=== PATIENT | male | born 1995 | race African-American/Black ===

== ENCOUNTER 2016-09-23 14:43 | Emergency (ER) | payer SELFPAY ==
[~2016-09-23] VITALS: Ht 172.7 cm; Wt 65.0 kg
[~2016-09-23 14:43] MED LIST: BACT2OIN TOP; CEPH500C3 PO; PRED50TA PO
[2016-09-23 14:45] VITALS: BP 134/81; PULSE 84; RESP 15; TEMP 97.7; O2SAT 98
[2016-09-23 14:59] VITALS: BP 143/78; PULSE 107; RESP 16; O2SAT 99
[2016-09-23] MEDS ORDERED: NAPR500T PO (15:06)
[2016-09-23] MEDS ORDERED: ZOFR4TAB3 SL ×2 (15:06→15:12)
--- NOTE | 2016-09-23 15:06 | PD ---
HPI Chief Complaint: Abdominal Pain Time Seen by Provider: 14:56 Travel History International Travel<30 days: No Contact w/Intl Traveler<30days: No Traveled to known affect area: No History of Present Illness HPI This is a 21-year-old male who presents to the emergency department with 1 week of intermittent headaches, described as mild, all over his head, associated with multiple cysts of vomiting yesterday. He is also reporting some loose stools and intermittent abdominal cramping. This felt a little under the weather throughout the week. That he's been having headaches for years and this is similar. He came in today because his job was concerned that he threw up yesterday and told him he needed to get a note to come back to work before he came back. He denies any fevers or chills. He otherwise feels fine. PFSH Past Medical History Medical History: Denies Significant Hx Influenza Vaccination: No Past Surgical History Surgical History: No Previous Surgery Social History Alcohol Use: No (BLACK & MILDS) Tobacco Use: Yes Substance Use: No Allergies-Medications (Allergen,Severity, Reaction): Coded Allergies: No Known Allergies (Verified , 03/29/16) Reported Meds & Prescriptions Reported Meds & Active Scripts Active Mupirocin 2% Oint (22 gm) (Mupirocin) 2 % Oin 1 Applic TOP BID 10 Days Deltasone (Prednisone) 50 Mg Tab 50 Mg PO DIRECTED 1 TAB PO DAILY X 4 DAYS, THEN 1/2 TAB PO DAILY X 4 DAYS. Keflex (Cephalexin Monohydrate) 500 Mg Cap 500 Mg PO BID Review of Systems Except as stated in HPI: all other systems reviewed are Neg Physical Exam Narrative GENERAL:Well appearing, no acute distress SKIN: Warm and dry. HEAD: Atraumatic. Normocephalic. EYES: Pupils equal and round. No injection or drainage. ENT: Moist mucous membranes NECK: Trachea midline. CARDIOVASCULAR: Regular rate and rhythm. No murmur appreciated. RESPIRATORY: Clear to auscultation. Breath sounds equal bilaterally. GASTROINTESTINAL: Abdomen soft, non-tender, nondistended. MUSCULOSKELETAL: No obvious deformities. NEUROLOGICAL: Awake and alert. No obvious cranial nerve deficits. No dysarthria or aphasia. No upper or lower extremity drift. No upper extremity ataxia. Visual barriga intact. PSYCHIATRIC: Appropriate mood and affect; insight and judgment normal. Data Data Last Documented VS Vital Signs Date Time Temp Pulse Resp B/P Pulse Ox O2 Delivery O2 Flow Rate FiO2 09/23/16 14:59 107 16 143/78 99 Room Air 09/23/16 14:45 97.7 [facility] Medical Decision Making Medical Screen Exam Complete: Yes Emergency Medical Condition: Yes Interpretation(s) Afebrile, no tachycardia, normotensive Differential Diagnosis Gastroenteritis, migraine headache, subarachnoid hemorrhage, brain tumor, appendicitis Narrative Course This is a very well-appearing 21-year-old male who presents to the emergency department with headache, intermittent abdominal pain and diarrhea. He's a completely normal neurologic exam. He says his headaches have been going on for years. He has a benign abdomen. I think he is really just here for a work note. I don't suspect a surgical or medical emergency at this time. Patient was discharged home. Diagnosis Primary Impression: Vomiting Qualified Code: R11.2 - Non-intractable vomiting with nausea, unspecified vomiting type Patient Instructions: General Instructions Additional Instructions: If you develop severe or worsening abdominal pain, fever>100.4, persistent vomiting or inability to eat or drink return to the emergency department immediately. Follow up with your primary care physician in 1-2 days for a check-up. Med/Other Pt SpecificInfo: Prescription(s) given Scripts Ondansetron Odt (Zofran Odt)4 Mg Tab4 Mg SL Q6HR PRN (Nausea/Vomiting) #15 TAB Prov:Myesha Hedrick MD 09/23/16 Naproxen 500 Mg Iss420 Mg PO BID PRN (PAIN SCALE 4 TO 10) #20 TAB Prov:Myesha Hedrick MD 09/23/16 Disposition: 01 DISCHARGE HOME Condition: Stable Myesha Hedrick MD Sep 23, 2016 15:06
== END 2016-09-23 15:31 | disposition home or self-care (01) ==
LOC: NEPC 14:43
DX: R11.2 Nausea with vomiting, unspecified (principal); Z72.0 Tobacco use
CPT/HCPCS: 99283

== ENCOUNTER 2016-10-14 06:43 | Emergency (ER) | payer SELFPAY ==
[~2016-10-14] VITALS: Ht 172.7 cm; Wt 62.0 kg
[~2016-10-14 06:43] MED LIST changes: -BACT2OIN TOP; -CEPH500C3 PO; +NAPR500T PO; -PRED50TA PO; +ZOFR4TAB3 SL
[2016-10-14 06:46] VITALS: BP 107/68; PULSE 77; RESP 16; TEMP 97.6; O2SAT 98
--- NOTE | 2016-10-14 07:05 | PD ---
HPI . Left knee pain since yesterday Chief Complaint: Pain: Acute or Chronic Time Seen by Provider: 07:05 Travel History International Travel<30 days: No Contact w/Intl Traveler<30days: No Traveled to known affect area: No History of Present Illness HPI 21-year-old male with no significant past medical history here with complaints of left knee pain since yesterday. Patient was outside and accidentally got struck in the left knee with a skateboard. He says at that time he did not think much of his injury and went home. Over the night his knee started to cause him increased pain that he reports 9/10 without any radiation. He is able to walk, but reports difficulty with ambulation. He also reports increased pain with movement. He is concerned because he has to go to work and tells me that he is unable to walk. He would like a note stating that he is unable to work. PFSH Past Medical History Medical History: Denies Significant Hx Diminished Hearing: No Past Surgical History Surgical History: No Previous Surgery Social History Alcohol Use: No Tobacco Use: No Substance Use: No Allergies-Medications (Allergen,Severity, Reaction): Coded Allergies: No Known Allergies (Verified , 10/14/16) Reported Meds & Prescriptions Reported Meds & Active Scripts Active Zofran Odt (Ondansetron Odt) 4 Mg Tab 4 Mg SL Q6HR PRN Naproxen 500 Mg Tab 500 Mg PO BID PRN Review of Systems General / Constitutional: No: Fever Eyes: No: Visual changes HENT: No: Headaches Cardiovascular: No: Chest Pain or Discomfort Respiratory: No: Shortness of Breath Gastrointestinal: No: Abdominal Pain Genitourinary: No: Dysuria Musculoskeletal: Positive: Pain (left knee pain) Skin: No Rash Neurologic: No: Weakness Psychiatric: No: Depression Endocrine: No: Polydipsia Hematologic/Lymphatic: No: Easy Bruising Physical Exam Narrative GENERAL: AAO x 3, no acute distress, Well-nourished, well-developed patient. SKIN: Warm and dry. No visible rashes or bruising. HEAD: Normocephalic and atraumatic. EYES: No scleral icterus. No injection or drainage. ENT: No nasal drainage noted. Airway patent. NECK: Supple, trachea midline. No JVD. CARDIOVASCULAR: Regular rate and rhythm without murmurs, gallops, or rubs. RESPIRATORY: Breath sounds equal bilaterally. No accessory muscle use. No rhonchi or rales. GASTROINTESTINAL: Abdomen soft, non-tender, nondistended. EXTREMITIES: No cyanosis or edema. Left knee without any edema, ecchymosis or gross abnormality. Active range of motion is diminished secondary pain. Passive range of motion is within normal limits. Valgus and varus stress test is normal. There is no visible effusion. BACK: Nontender without obvious deformity. No CVA tenderness. PSYCH: AAO x 3, normal affect. Data Data Last Documented VS Vital Signs Date Time Temp Pulse Resp B/P Pulse Ox O2 Delivery O2 Flow Rate FiO2 10/14/16 06:46 97.6 77 16 107/68 98 Room Air Orders ^ Salvador Bandage (10/14/16 07:08) Crutches (10/14/16 07:09) MDM Medical Decision Making Medical Screen Exam Complete: Yes Emergency Medical Condition: Yes Medical Record Reviewed: Yes Differential Diagnosis knee sprain, internal derangement of the knee, less likely knee fracture Narrative Course 21-year-old male with no significant past medical history here with complaints of left knee pain since yesterday. Patient was outside and accidentally got struck in the left knee with a skateboard. He says at that time he did not think much of his injury and went home. Over the night his knee started to cause him increased pain that he reports 9/10 without any radiation. He is able to walk, but reports difficulty with ambulation. He also reports increased pain with movement. He is concerned because he has to go to work and tells me that he is unable to walk. He would like a note stating that he is unable to work. Patient seen and examined. His knee examination is fairly unremarkable except for pain with passive movement and difficulty standing. He is ambulatory. My index of suspicion for a fracture is very low. I recommend Salvador wrap and crutches for brief immobilization. He more than likely has a knee sprain. I'll provide him with a note for work today. He's been advised to use ibuprofen for pain and inflammation. He can ice the area. He will need follow-up with primary care provider. If he continues to experience pain in this extremity he may need further imaging with an MRI to look at ligaments and the meniscus. Patient verbalized understanding of instructions, questions were answered, and thanked me for their care. I advised them if their condition worsens, please return to the nearest emergency room for further care. Diagnosis Primary Impression: Left knee sprain Qualified Code: S83.92XA - Sprain of left knee, unspecified ligament, initial encounter Patient Instructions: General Instructions Departure Forms: Tests/Procedures, Work Release Enter return to work date: Oct 15, 2016 Additional Instructions: Rest the affected area as much as possible. Ice this area for 15-20 minutes at a time. You can do this every hour or as much as tolerated. Keep this area compressed (salvador bandage) as tolerated. Elevate this area. Use ibuprofen as needed for pain and inflammation. Use crutches for the next 3-5 days. Please return to emergency department if your symptoms return or worsen. Follow up with your primary care provider. Take medications as prescribed. If pain persists past 7-10 days, please follow-up to primary care provider for further workup and treatment. Disposition: 01 DISCHARGE HOME Condition: Stable Anuradha Hsu Oct 14, 2016 07:05
== END 2016-10-14 07:43 | disposition home or self-care (01) ==
LOC: NEPK 06:43
DX: S83.92XA Sprain of unspecified site of left knee, initial encounter (principal); W20.8XXA Other cause of strike by thrown, projected or falling object, initial encounter; Y93.51 Activity, roller skating (inline) and skateboarding; Y92.39 Other specified sports and athletic area as the place of occurrence of the external cause
CPT/HCPCS: 99283; E0113

== ENCOUNTER 2016-11-06 04:38 | Emergency (ER) | payer SELFPAY ==
[~2016-11-06] VITALS: Ht 172.7 cm; Wt 65.0 kg
[2016-11-06 04:42] VITALS: BP 124/69; PULSE 70; RESP 18; TEMP 98.6; O2SAT 99
[2016-11-06] MEDS ORDERED: KETOROLAC TROMETHAMINE 30 MG/ML (IVP) VIAL IV PUSH ONE (05:45)
[2016-11-06] MEDS ORDERED: SODIUM CHLOR 0.9% 1000 ML INJ 1,000 ML IV ONE (05:45)
--- NOTE | 2016-11-06 06:08 | PD ---
HPI Chief Complaint: Headache Time Seen by Provider: 05:34 Travel History International Travel<30 days: No Contact w/Intl Traveler<30days: No Traveled to known affect area: No History of Present Illness HPI 21yo M with PMH of migraine presents to the ED with c/o right sided headache. Feels like his migraine with positive photophobia. States he gets these headaches 2 times a week. Denies any fever, visual changes, chest pain, sob, n/ v, abdominal pain, focal weakness or numbness or trauma. PFSH Past Medical History Medical History: Denies Significant Hx Diminished Hearing: No Past Surgical History Surgical History: No Previous Surgery Social History Alcohol Use: No Tobacco Use: No Substance Use: No Allergies-Medications (Allergen,Severity, Reaction): Coded Allergies: No Known Allergies (Verified , 11/06/16) Reported Meds & Prescriptions Reported Meds & Active Scripts Active No Active Prescriptions or Reported Medications Review of Systems Except as stated in HPI: all other systems reviewed are Neg Physical Exam Narrative GENERAL: 21yo M in mild distress. SKIN: Focused skin assessment warm/dry. HEAD: Atraumatic. Normocephalic. EYES: Pupils equal and round at 4mm bilaterally. EOMI. No scleral icterus. No injection or drainage. ENT: No nasal bleeding or discharge. Mucous membranes pink and moist. NECK: Trachea midline. No JVD. CARDIOVASCULAR: Regular rate and rhythm. No murmur appreciated. RESPIRATORY: No accessory muscle use. Clear to auscultation. Breath sounds equal bilaterally. GASTROINTESTINAL: Abdomen soft, non-tender, nondistended. MUSCULOSKELETAL: No obvious deformities. No clubbing. No cyanosis. No edema. NEUROLOGICAL: Awake and alert. No obvious cranial nerve deficits. Motor grossly within normal limits. Normal speech. PSYCHIATRIC: Appropriate mood and affect; insight and judgment normal. Data Data Last Documented VS Vital Signs Date Time Temp Pulse Resp B/P Pulse Ox O2 Delivery O2 Flow Rate FiO2 11/06/16 06:55 18 11/06/16 04:42 98.6 70 124/69 99 Orders Ketorolac Inj (Toradol Inj) (11/06/16 05:45) Sodium Chlor 0.9% 1000 Ml Inj (Ns 1000 M (11/06/16 05:45) MDM Medical Decision Making Medical Screen Exam Complete: Yes Emergency Medical Condition: Yes Differential Diagnosis Migraine headache vs. tension headache Narrative Course 21yo M with right sided headache, feels like his usual headache. Pt given NS IVF and toradol 30mg IV. Pt reevaluated at bedside and headache has resolved. Pt feels better and wants to go home. Return precautions given. Diagnosis Primary Impression: Headache Qualified Code: R51 - Nonintractable episodic headache, unspecified headache type Patient Instructions: General Instructions Departure Forms: Tests/Procedures Additional Instructions: Please follow up with your PMD for possible neurology referral or our neurologist for work up of your chronic headaches. Return to the ED if symptoms worsen. Med/Other Pt SpecificInfo: Prescription(s) given Scripts Acetaminophen 500 Mg [id number] Mg PO Q6H PRN (PAIN SCALE 1 TO 4) #20 TAB Ref 0 Prov:Shana Navas DO 11/06/16 Disposition: 01 DISCHARGE HOME Condition: Stable Shana Navas DO Nov 06, 2016 06:08
[2016-11-06 06:55] VITALS: RESP 18
[2016-11-06] MEDS ORDERED: ACET500T3 PO (07:22)
== END 2016-11-06 08:17 | disposition home or self-care (01) ==
LOC: NEPE 04:38
DX: R51 Headache (principal)
CPT/HCPCS: 96361; 96374; 99283; J1885; J7030

== ENCOUNTER 2017-01-09 07:22 | Emergency (ER) | payer SELFPAY ==
[~2017-01-09] VITALS: Ht 172.7 cm; Wt 65.0 kg
[~2017-01-09 07:22] MED LIST changes: +ACET500T3 PO; -NAPR500T PO; -ZOFR4TAB3 SL
[2017-01-09 07:23] VITALS: BP 153/69; PULSE 77; RESP 16; TEMP 98.2; O2SAT 98
[2017-01-09 07:42] VITALS: BP 131/66; PULSE 77; RESP 16; O2SAT 99
[2017-01-09] MEDS ORDERED: cefTRIAXone 250 MG VIAL IM ONE (08:15)
[2017-01-09] MEDS ORDERED: SODIUM CHLORIDE 0.9% FLUSH 10 ML FLUSH IVF PRN (08:15)
[2017-01-09] MEDS ORDERED: AZITHROMYCIN PWD FOR SUSP 1 GM PACKET PO ONE (08:15)
[2017-01-09] MEDS ORDERED: IBUPROFEN 600 MG TAB PO ONE (08:15)
--- NOTE | 2017-01-09 09:29 | PD ---
HPI Chief Complaint: Complaint Time Seen by Provider: 08:11 Travel History International Travel<30 days: No Contact w/Intl Traveler<30days: No Traveled to known affect area: No History of Present Illness HPI 21-year-old male came to the emergency room with history of dysuria, suprapubic discomfort and yellowish-colored penile discharge. Patient says this has been going on for past 4 days. He is sexually active and has had unprotected sex with his "baby mama"about one month ago. He is otherwise a healthy person. He looked a little anxious but vital signs stable. No blood in his urine. [facility] Past Medical History Narrative Medical List of his past medical, surgical, social and family history was reviewed from the nursing note. Medical History: Denies Significant Hx Diminished Hearing: No Influenza Vaccination: No Past Surgical History Surgical History: No Previous Surgery Social History Alcohol Use: Yes (OCCASIONALLY) Tobacco Use: Yes Substance Use: Yes (MARIJUANA) Allergies-Medications (Allergen,Severity, Reaction): Coded Allergies: No Known Allergies (Verified , 01/09/17) Comments No known drug allergies. Reported Meds & Prescriptions Reported Meds & Active Scripts Active Macrobid (Nitrofurantoin Monoh/Nitrofur Macro) 100 Mg Cap 100 Mg PO BID 10 Days Narrative Medication List of his home medications reviewed from the nursing note. Review of Systems Except as stated in HPI: all other systems reviewed are Neg Physical Exam Narrative GENERAL: Awake, alert, anxious, mild distress SKIN: Focused skin assessment warm/dry. HEAD: Atraumatic. Normocephalic. EYES: Pupils equal and round. No scleral icterus. No injection or drainage. ENT: No nasal bleeding or discharge. Mucous membranes pink and moist. NECK: Trachea midline. No JVD. CARDIOVASCULAR: Regular rate and rhythm. No murmur appreciated. RESPIRATORY: No accessory muscle use. Clear to auscultation. Breath sounds equal bilaterally. GASTROINTESTINAL: Abdomen soft, non-tender, nondistended. Hepatic and splenic margins not palpable. MUSCULOSKELETAL: No obvious deformities. No clubbing. No cyanosis. No edema. NEUROLOGICAL: Awake and alert. No obvious cranial nerve deficits. Motor grossly within normal limits. Normal speech. PSYCHIATRIC: Appropriate mood and affect; insight and judgment normal. Data Data Last Documented VS Orders Ua Includes Microscopic (01/09/17 08:13) Gc And Chlamydia Pcr (01/09/17 08:13) Azithromycin Powd Pack (Zithromax Powd P (01/09/17 08:15) Ceftriaxone Inj (Rocephin Inj) (01/09/17 08:15) Sodium Chloride 0.9% Flush (Ns Flush) (01/09/17 08:15) Ibuprofen (Motrin) (01/09/17 08:15) Nitrofurantoin Monohyd Macrocr (Macrobid (01/09/17 09:45) Labs [facility] Medical Decision Making Medical Screen Exam Complete: Yes Emergency Medical Condition: Yes Medical Record Reviewed: Yes Differential Diagnosis STD, urethritis, UTI, cystitis Narrative Course 9:28 AM given the symptoms are highly suspicious for STD. UA and urine for GC and chlamydia has been sent. Awaiting for the test result. Patient was given by mouth Motrin for his discomfort. I had ordered IM Rocephin and Zithromax but patient refused to take the IM shot. 9:39 AM UA strongly suggestive of UTI. I've given him a dose of Macrobid. GC and chlamydia still pending. Patient will be discharged home on Macrobid prescription. Once again he has refused IM ceftriaxone. Procedures EKG Prior to Arrival: No Diagnosis Primary Impression: Cystitis Additional Impression: UTI (urinary tract infection) Qualified Code: N30.00 - Acute cystitis without hematuria Referrals: Primary Care Physician Additional Instructions: He will be called back if you her GC and/or chlamydia is positive for further treatment. He had refused to get the antibiotic shot in the emergency room. Please take the medication prescription as per the direction. Drink lots of fluid and cranberry juice. Follow up with a primary care. Use condoms for sex for next 21 days. If the test comes back positive your partners will need to be treated as well. Med/Other Pt SpecificInfo: Prescription(s) given Scripts Nitrofurantoin Monohydrate Macrocrystals (Macrobid)100 Mg [id number] Mg PO BID 10 Days Ref 0 Prov:Leticia Sanders MD 01/09/17 Disposition: 01 DISCHARGE HOME Condition: Stable Leticia Sanders MD Jan 09, 2017 09:29 [facility] Medical Decision Making Medical Screen Exam Complete: Yes Emergency Medical Condition: Yes Medical Record Reviewed: Yes Differential Diagnosis STD, urethritis, UTI, cystitis Narrative Course 9:28 AM given the symptoms are highly suspicious for STD. UA and urine for GC and chlamydia has been sent. Awaiting for the test result. Patient was given by mouth Motrin for his discomfort. I had ordered IM Rocephin and Zithromax but patient refused to take the IM shot. 9:39 AM UA strongly suggestive of UTI. I've given him a dose of Macrobid. GC and chlamydia still pending. Patient will be discharged home on Macrobid prescription. Once again he has refused IM ceftriaxone. Procedures EKG Prior to Arrival: No Diagnosis Primary Impression: Cystitis Additional Impression: UTI (urinary tract infection) Qualified Code: N30.00 - Acute cystitis without hematuria Referrals: Primary Care Physician Additional Instructions: He will be called back if you her GC and/or chlamydia is positive for further treatment. He had refused to get the antibiotic shot in the emergency room. Please take the medication prescription as per the direction. Drink lots of fluid and cranberry juice. Follow up with a primary care. Use condoms for sex for next 21 days. If the test comes back positive your partners will need to be treated as well. Med/Other Pt SpecificInfo: Prescription(s) given Scripts Nitrofurantoin Monohydrate Macrocrystals (Macrobid)100 Mg [id number] Mg PO BID 10 Days Ref 0 Prov:Leticia Sanders MD 01/09/17 Disposition: 01 DISCHARGE HOME Condition: Stable Leticia Sanders MD Jan 09, 2017 09:29
[2017-01-09 09:33] LABS: BLOOD, URINE SMALL (NEG); GLUCOSE,URINE NEG (NEG); KETONE, URINE NEG (NEG); NITRITE,URINE NEG (NEG); PH, URINE 6.5 (5.0-8.5); URINE COLOR YELLOW (YELLW/STRAW)
[2017-01-09] MEDS ORDERED: MACR100C2 PO (09:42)
[2017-01-09] MEDS ORDERED: NITROFURANTOIN MONOHYD MACROCR 100 MG CAP PO ONE (09:45)
[2017-01-09 12:46] LABS: CHLAMYDIA PCR DETECTED (NOT DETECT); NEISSERIA PCR DETECTED (NOT DETECT)
== END 2017-01-09 09:54 | disposition home or self-care (01) ==
LOC: NEPC 07:22
DX: N30.00 Acute cystitis without hematuria (principal); R36.9 Urethral discharge, unspecified; Z72.0 Tobacco use
CPT/HCPCS: 81001; 87491; 87591; 99283

== ENCOUNTER 2017-01-24 13:17 | Emergency (ER) | payer SELFPAY ==
[~2017-01-24] VITALS: Ht 172.7 cm; Wt 62.0 kg
[~2017-01-24 13:17] MED LIST changes: -ACET500T3 PO; +MACR100C2 PO
[2017-01-24 13:19] VITALS: BP 110/62; PULSE 76; RESP 16; TEMP 97.9; O2SAT 98
--- NOTE | 2017-01-24 14:39 | PD ---
HPI . dysuria Chief Complaint: Complaint Time Seen by Provider: 14:45 Travel History International Travel<30 days: No Contact w/Intl Traveler<30days: No Traveled to known affect area: No History of Present Illness HPI 21-year-old male here with complaints of dysuria. Patient says he was seen 2 weeks ago and treated with medications. He says that his symptoms went away and now they are back. He admits to penile discharge, but does not want me to look at his penis. He denies any sexual activity since. He actually wanted to wait for the results of the STD testing, however when we discussed the length of those he decided that he wants to leave. Patient says that he is okay going home as he doesn't want more meds if he isn't infected and I advised him if there is any abnormality somebody will notify him tomorrow. PFSH Past Medical History Diminished Hearing: No Social History Alcohol Use: Yes (OCCASIONALLY) Tobacco Use: Yes Substance Use: Yes (MARIJUANA) Allergies-Medications (Allergen,Severity, Reaction): Coded Allergies: No Known Allergies (Verified , 01/24/17) Reported Meds & Prescriptions Reported Meds & Active Scripts Active Macrobid (Nitrofurantoin Monoh/Nitrofur Macro) 100 Mg Cap 100 Mg PO BID 10 Days Review of Systems General / Constitutional: No: Fever Eyes: No: Visual changes HENT: No: Headaches Cardiovascular: No: Chest Pain or Discomfort Respiratory: No: Shortness of Breath Gastrointestinal: No: Abdominal Pain Genitourinary: Positive: Dysuria, Other (penile discharge) Musculoskeletal: No: Pain Skin: No Rash Neurologic: No: Weakness Psychiatric: No: Depression Endocrine: No: Polydipsia Hematologic/Lymphatic: No: Easy Bruising Physical Exam Narrative GENERAL: AAO x 3, no acute distress, Well-nourished, well-developed patient. SKIN: Warm and dry. No visible rashes or bruising. HEAD: Normocephalic and atraumatic. EYES: No scleral icterus. No injection or drainage. ENT: No nasal drainage noted. Mucous membranes pink. Airway patent. NECK: Supple, trachea midline. No JVD. CARDIOVASCULAR: Regular rate and rhythm without murmurs, gallops, or rubs. RESPIRATORY: Breath sounds equal bilaterally. No accessory muscle use. No rhonchi or rales. GASTROINTESTINAL: Abdomen soft, non-tender, nondistended. 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 No discharge on paper. EXTREMITIES: No cyanosis or edema. BACK: No obvious deformity. NO CVA tenderness. 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 Data Data Last Documented VS Vital Signs Date Time Temp Pulse Resp B/P Pulse Ox O2 Delivery O2 Flow Rate FiO2 01/24/17 14:57 98.0 72 16 118/71 99 01/24/17 13:19 Room Air Orders Urinalysis - C+S If Indicated (01/24/17 14:53) Gc And Chlamydia Pcr (01/24/17 14:53) Sodium Chloride 0.9% Flush (Ns Flush) (01/24/17 15:00) MDM Medical Decision Making Medical Screen Exam Complete: Yes Emergency Medical Condition: Yes Medical Record Reviewed: Yes Differential Diagnosis gonorrhea, chlamydia, UTI Narrative Course 21-year-old male here with complaints of dysuria penile discharge. Patient will not allow examination. Records reveal that he was positive for both chlamydia and gonorrhea on January 09. I discussed these results with patient and he wants to wait until testing is back. He actually did not want to wait for several hours in the ED and has opted to have someone call him tomorrow if in fact he is infected. I recommend testing at [facility] for all STDs. Diagnosis Primary Impression: Dysuria Patient Instructions: General Instructions Additional Instructions: Someone will notify you of your results once they become available. You should go to the health department for further STD screening and testing. Med/Other Pt SpecificInfo: No Change to Meds Disposition: 01 DISCHARGE HOME Condition: Stable Anuradha Hsu Jan 24, 2017 14:39
[2017-01-24 14:57] VITALS: BP 118/71; TEMP 98
[2017-01-24] MEDS ORDERED: SODIUM CHLORIDE 0.9% FLUSH 10 ML FLUSH IVF PRN (15:00)
[2017-01-24 15:45] LABS: BACTERIA, URINE RARE /hpf; BLOOD, URINE TRACE (NEG); COMMENT (UR) CULTURE INDICATED; CULTURE IF INDICATED CULTURE INDICATED; GLUCOSE,URINE NEG (NEG); KETONE, URINE NEG (NEG); NITRITE,URINE NEG (NEG); URINE COLOR YELLOW (YELLW/STRAW)
[2017-01-24 17:41] LABS: CHLAMYDIA PCR NOT DETECTED (NOT DETECT); NEISSERIA PCR DETECTED (NOT DETECT)
== END 2017-01-24 14:57 | disposition home or self-care (01) ==
LOC: NEPK 13:17
DX: R30.0 Dysuria (principal); R36.9 Urethral discharge, unspecified; Z72.0 Tobacco use
CPT/HCPCS: 81001; 87086; 87185; 87491; 87591; 99283

== ENCOUNTER 2017-01-25 16:44 | Emergency (ER) | payer BC ==
[~2017-01-25] VITALS: Ht 172.7 cm; Wt 65.0 kg
[2017-01-25 16:45] VITALS: BP 117/56; PULSE 115; RESP 20; TEMP 98.7; O2SAT 97
[2017-01-25] MEDS ORDERED: cefTRIAXone 250 MG VIAL IM ONE (17:15)
[2017-01-25] MEDS ORDERED: AZITHROMYCIN 250 MG TAB PO ONE (17:15)
[2017-01-25] MEDS ORDERED: LIDOCAINE HCL 1% 50 ML VIAL XX ONE (17:15)
--- NOTE | 2017-01-25 17:16 | PD ---
HPI Chief Complaint: Complaint Time Seen by Provider: 17:15 Travel History International Travel<30 days: No Contact w/Intl Traveler<30days: No Traveled to known affect area: No History of Present Illness HPI 21-year-old male presents to the emergency department for treatment of chlamydia. Patient was seen and evaluated yesterday and diagnosed with dysuria. His GC PCR came back positive. He is contacted today and instructed to return to emergency department. Patient has no new symptoms to report. [facility] Past Medical History Medical History: Denies Significant Hx Diminished Hearing: No Genitourinary: Yes (STD) Social History Alcohol Use: Yes (OCCASIONALLY) Tobacco Use: Yes Substance Use: Yes (MARIJUANA) Allergies-Medications (Allergen,Severity, Reaction): Coded Allergies: No Known Allergies (Verified , 01/24/17) Reported Meds & Prescriptions Reported Meds & Active Scripts Active Macrobid (Nitrofurantoin Monoh/Nitrofur Macro) 100 Mg Cap 100 Mg PO BID 10 Days Review of Systems Except as stated in HPI: all other systems reviewed are Neg Physical Exam Narrative GENERAL: Well-nourished, well-developed male patient in no acute distress SKIN: Focused skin assessment warm/dry. HEAD: Normocephalic. EYES: No scleral icterus. No injection or drainage. NECK: Supple, trachea midline. No JVD or lymphadenopathy. CARDIOVASCULAR: Regular rate and rhythm without murmurs, gallops, or rubs. RESPIRATORY: Breath sounds equal bilaterally. No accessory muscle use. GASTROINTESTINAL: Abdomen soft, non-tender, nondistended. MUSCULOSKELETAL: No cyanosis, or edema. BACK: Nontender without obvious deformity. No CVA tenderness. Data Data Last Documented VS Vital Signs Date Time Temp Pulse Resp B/P Pulse Ox O2 Delivery O2 Flow Rate FiO2 01/25/17 16:45 98.7 115 20 117/56 97 Room Air Orders Ceftriaxone Inj (Rocephin Inj) (01/25/17 17:15) Lidocaine 1% Inj (50 Ml) (Xylocaine 1% I (01/25/17 17:15) Azithromycin (Zithromax) (01/25/17 17:15) Lidocaine Pf 1% Inj (Xylocaine-Mpf 1% In (01/25/17 17:31) Lidocaine Pf 1% Inj (Xylocaine-Mpf 1% In (01/25/17 17:34) MDM Medical Decision Making Medical Screen Exam Complete: Yes Emergency Medical Condition: Yes Medical Record Reviewed: Yes Differential Diagnosis Chlamydia versus urethritis versus UTI versus other STD Narrative Course 21-year-old male presents to the emergency department for treatment of chlamydia. Patient appears without distress. He has no acute changes. He is treated with both Rocephin and azithromycin here in the emergency department. He is counseled on safe sex practices. Instructed to tell his partners about his diagnosis and the need for treatment. He agrees to return immediately with any acute worsening symptoms. Diagnosis Primary Impression: Chlamydia Referrals: Primary Care Physician Patient Instructions: Chlamydia (ED), General Instructions Additional Instructions: Your partners should be tested and treated Utilize condom prophylaxis Follow-up with the [facility] department Return immediately with any acute worsening of symptoms Med/Other Pt SpecificInfo: No Change to Meds Disposition: 01 DISCHARGE HOME Condition: Stable Ida Luciano Jan 25, 2017 17:16
[2017-01-25] MEDS ORDERED: LIDOCAINE HCL 1% PF 2 ML VIAL ONE ×2 (17:31→17:34)
== END 2017-01-25 18:28 | disposition home or self-care (01) ==
LOC: NEPK 16:44
DX: A74.9 Chlamydial infection, unspecified (principal); Z79.899 Other long term (current) drug therapy; Z72.0 Tobacco use
CPT/HCPCS: 96372; 99281; J0696

== ENCOUNTER 2017-01-27 12:37 | Emergency (ER) | payer BC ==
[~2017-01-27] VITALS: Ht 172.7 cm; Wt 60.0 kg
[2017-01-27 12:38] VITALS: BP 118/66; PULSE 73; RESP 16; TEMP 98.2; O2SAT 98
--- NOTE | 2017-01-27 12:46 | PD ---
HPI . called to come in Chief Complaint: Complaint Time Seen by Provider: 12:44 Travel History International Travel<30 days: No Contact w/Intl Traveler<30days: No Traveled to known affect area: No History of Present Illness HPI 21-year-old male received a phone call to come back to the emergency department. I actually saw this patient a few days ago and he did not want prophylactic treatment for chlamydia and gonorrhea. Lab tests are back and he is positive for gonorrhea. I have reviewed the records and he actually already received azithromycin and rocephin. PFSH Past Medical History Diminished Hearing: No Genitourinary: Yes (STD) Social History Alcohol Use: Yes (OCCASIONALLY) Tobacco Use: Yes Substance Use: Yes (MARIJUANA) Allergies-Medications (Allergen,Severity, Reaction): Coded Allergies: No Known Allergies (Verified , 01/24/17) Reported Meds & Prescriptions Reported Meds & Active Scripts Active Macrobid (Nitrofurantoin Monoh/Nitrofur Macro) 100 Mg Cap 100 Mg PO BID 10 Days Review of Systems General / Constitutional: No: Fever Eyes: No: Visual changes HENT: No: Headaches Cardiovascular: No: Chest Pain or Discomfort Respiratory: No: Shortness of Breath Gastrointestinal: No: Abdominal Pain Genitourinary: No: Dysuria Musculoskeletal: No: Pain Skin: No Rash Neurologic: No: Weakness Psychiatric: No: Depression Endocrine: No: Polydipsia Hematologic/Lymphatic: No: Easy Bruising Physical Exam Narrative GENERAL: AAO x 3, no acute distress, Well-nourished, well-developed patient. SKIN: Warm and dry. No visible rashes or bruising. HEAD: Normocephalic and atraumatic. EYES: No scleral icterus. No injection or drainage. ENT: No nasal drainage noted.Airway patent. NECK: Supple, trachea midline. No JVD. CARDIOVASCULAR: Regular rate and rhythm without murmurs, gallops, or rubs. RESPIRATORY: Breath sounds equal bilaterally. No accessory muscle use. No rhonchi or rales. GASTROINTESTINAL: Abdomen soft, non-tender, nondistended. EXTREMITIES: No cyanosis or edema. BACK: Nontender without obvious deformity. No CVA tenderness. NEURO: CN II-12 intact, PSYCH: AAO x 3, normal affect. Data Data Last Documented VS Vital Signs Date Time Temp Pulse Resp B/P Pulse Ox O2 Delivery O2 Flow Rate FiO2 01/27/17 12:38 98.2 73 16 118/66 98 [facility] Medical Decision Making Medical Screen Exam Complete: Yes Emergency Medical Condition: Yes Medical Record Reviewed: Yes Differential Diagnosis gonorrhea, chlamydia, Narrative Course A medical screening exam was performed: At the time of evaluation the presenting medical condition was determined not to be of an emergent nature. The patient was given the option of receiving additional care, but declined. Patient was given options for additional community resources from which to obtain care. The Patient Has Been advised to seek medical attention for their presenting complaint. The patient has been advised to return to the ER at any time if an emergent condition develops. Diagnosis Primary Impression: Encounter for medical screening examination Condition: Stable Anuradha Hsu Jan 27, 2017 12:46
== END 2017-01-27 12:54 | disposition left against medical advice (07) ==
LOC: NEPD 12:37
DX: A54.9 Gonococcal infection, unspecified (principal)
CPT/HCPCS: 99281

== ENCOUNTER 2017-04-09 00:03 | Emergency (ER) | payer BC ==
[~2017-04-09] VITALS: Ht 172.7 cm; Wt 60.0 kg
[2017-04-09 00:05] VITALS: BP 109/69; PULSE 69; RESP 16; TEMP 97.9; O2SAT 99
--- NOTE | 2017-04-09 02:08 | PD ---
HPI Chief Complaint: Injury Time Seen by Provider: 01:57 Travel History International Travel<30 days: No Contact w/Intl Traveler<30days: No Traveled to known affect area: No History of Present Illness HPI 22-year-old [id number]-jpmrowan black male presents to emergency department with complains of right hand pain after striking a wall. The patient states that he has pain in his thumb and first metacarpal. He denies any numbness or tingling. No other injury. This happened prior to arrival. Pain is mild to moderate PFSH Past Medical History Medical History: Denies Significant Hx Diminished Hearing: No Genitourinary: Yes (STD) Tetanus Vaccination: Unknown Past Surgical History Surgical History: No Previous Surgery Social History Alcohol Use: Yes (OCCASIONALLY) Tobacco Use: No Substance Use: Yes (MARIJUANA) Allergies-Medications (Allergen,Severity, Reaction): Coded Allergies: No Known Allergies (Verified , 01/24/17) Reported Meds & Prescriptions Reported Meds & Active Scripts Active Diclofenac Sodium DR (Diclofenac Sodium) 75 Mg Tabdr 75 Mg PO BID Review of Systems Except as stated in HPI: all other systems reviewed are Neg Physical Exam Narrative GENERAL: This is a well-nourished, well-developed patient, in no apparent distress. SKIN: No rashes, ecchymoses or lesions. Warm and dry. HEAD: Atraumatic. Normocephalic. EYES: PERRL, EOMI, no discharge or injection. No scleral icterus. EARS: Clear NOSE: Nasal turbinates appear normal. THROAT: Mucosa pink and moist. Airway patent. NECK: Trachea midline. supple, moves head freely. LUNGS: Clear to auscultation. CV: Regular in rhythm. ABDOMEN: Soft nontender. EXT: No clubbing cyanosis or edema. Examination the right hand reveals pain in the proximal phalanx of the right thumb into the first MCP and first metacarpal. Remainder hand is unremarkable. No pain in the wrist or anatomical snuffbox. No gamekeeper's thumb. Data Data Last Documented VS Vital Signs Date Time Temp Pulse Resp B/P (MAP) Pulse Ox O2 Delivery O2 Flow Rate FiO2 04/09/17 00:05 97.9 69 16 109/69 (82) 99 Room Air Orders Orders Hand, Complete ([id number]) (04/09/17 01:59) Ice/Cold Pack (04/09/17 01:59) Ibuprofen (Motrin) (04/09/17 02:45) MDM Medical Decision Making Medical Screen Exam Complete: Yes Emergency Medical Condition: Yes Medical Record Reviewed: Yes Interpretation(s) Right hand: Negative for acute fracture. No subluxation. Differential Diagnosis MDM: High Differential diagnoses: Fracture, sprain, strain, dislocation, contusion, neurovascular injury Narrative Course Patient's given Motrin 800 mg by mouth. X-rays negative. This is right hand sprain Diagnosis Primary Impression: Sprain of right hand Qualified Codes: S63.91XA - Sprain of unspecified part of right wrist and hand , initial encounter Additional Impression: Sprained finger and thumb of right hand Qualified Codes: S63.619A - Unspecified sprain of unspecified finger, initial encounter; S63.601A - Unspecified sprain of right thumb, initial encounter Patient Instructions: General Instructions Departure Forms: Tests/Procedures, Work Release Special Instructions: No work 2 days. Additional Instructions: Rest. Elevation. Ice. Diclofenac. Follow-up with medical doctor in one week. Med/Other Pt SpecificInfo: Prescription(s) given Scripts Diclofenac Sodium DR (Diclofenac Sodium DR) 75 Mg Tabdr 75 MG PO BID, #14 TAB 0 Refills Prov: Juan Martin MD 04/09/17 Disposition: 01 DISCHARGE HOME Condition: Stable Solis De Anda Apr 09, 2017 02:08
--- NOTE | 2017-04-09 02:29 | RADRPT ---
EXAM DATE/TIME: 04/09/2017 01:58 [facility] COMPARISON: No previous studies available for comparison. INDICATIONS : Pt punched wall MEDICAL HISTORY : None. SURGICAL HISTORY : None. ENCOUNTER: Initial ACUITY: 1 day PAIN SCORE: 7/10 LOCATION: Right Hand FINDINGS: Three view examination of the right hand demonstrates no soft tissue swelling, dislocation, or fractu re. The carpal bones appear intact. The interphalangeal and metacarpophalangeal joints are intact. Bony mineralization is normal. CONCLUSION: Normal examination for a patient of this age. Solis Tsai MD on April 09, 2017 at 2:26 Board Certified Radiologist. This report was verified electronically.
[2017-04-09] MEDS ORDERED: DICL75TA PO (02:30)
[2017-04-09] MEDS ORDERED: IBUPROFEN 800 MG TAB PO ONE (02:45)
== END 2017-04-09 02:42 | disposition home or self-care (01) ==
LOC: NEPD 00:03
DX: S63.91XA Sprain of unspecified part of right wrist and hand, initial encounter (principal); S63.619A Unspecified sprain of unspecified finger, initial encounter; S63.601A Unspecified sprain of right thumb, initial encounter; X50.0XXA Overexertion from strenuous movement or load, initial encounter
CPT/HCPCS: 73130; 99283

== ENCOUNTER 2017-06-24 12:32 | Emergency (ER) | payer BC ==
[~2017-06-24] VITALS: Ht 175.3 cm; Wt 62.0 kg
[~2017-06-24 12:32] MED LIST changes: +DICL75TA PO; -MACR100C2 PO
[2017-06-24 12:33] VITALS: BP 120/62; PULSE 81; RESP 12; TEMP 98.5; O2SAT 99
[2017-06-24] MEDS ORDERED: SODIUM CHLOR 0.9% 1000 ML INJ 1,000 ML IV ONE ×2 (13:39→15:45)
[2017-06-24] MEDS ORDERED: MORPHINE SULFATE 4 MG/ML INJ IV PUSH ONE ×2 (13:45→15:45)
[2017-06-24] MEDS ORDERED: PROCHLORPERAZINE INJ 10 MG/2 ML VIAL IVP ONE (13:45)
[2017-06-24] MEDS ORDERED: KETOROLAC TROMETHAMINE 30 MG/ML (IVP) VIAL IVP ONE (13:45)
[2017-06-24] MEDS ORDERED: SODIUM CHLORIDE 0.9% FLUSH 10 ML FLUSH IVF PRN (13:45)
[2017-06-24] MEDS ORDERED: diphenhydrAMINE HCL 50 MG/ML VIAL IVP ONE (13:45)
--- NOTE | 2017-06-24 14:18 | PD ---
HPI Chief Complaint: Headache Time Seen by Provider: 13:28 Travel History International Travel<30 days: No Contact w/Intl Traveler<30days: No Traveled to known affect area: No History of Present Illness HPI The patient is a 22-year-old Tish male who presents emergency department for headache. The patient has a history of migraines, states he has had a headache for the last 24 hours. The headache is located over the right side, throbbing, associated with photophobia, phonophobia, and mild nausea. He denies any vomiting. He does have a history of similar headaches in the past and states he had a previous CAT scan of the brain which was negative. He is not followed by a neurologist. He denies any focal deficits. He denies any weakness or numbness of the upper or lower extremities. The patient denies any neck pain, neck stiffness, fever, chills, or sweats. Symptoms are moderate, possibly exacerbated by history of migraines, and there are no current alleviating factors. PFSH Past Medical History Narrative Medical Migraines Diminished Hearing: No Genitourinary: Yes (STD) Social History Alcohol Use: Yes (OCCASIONALLY) Tobacco Use: No Substance Use: Yes (MARIJUANA) Allergies-Medications (Allergen,Severity, Reaction): Coded Allergies: No Known Allergies (Verified Adverse Reaction, Unknown, 06/24/17) Reported Meds & Prescriptions Reported Meds & Active Scripts Active Review of Systems Except as stated in HPI: all other systems reviewed are Neg General / Constitutional: No: Fever, Chills Eyes: Positive: Photophobia, No: Visual changes HENT: Positive: Headaches, No: Neck Pain Cardiovascular: No: Chest Pain or Discomfort Respiratory: No: Shortness of Breath Gastrointestinal: Positive: Nausea, No: Vomiting, Abdominal Pain Musculoskeletal: No: Weakness Neurologic: Positive: Headache, No: Focal Abnormalities, Paresthesia, Sensory Disturbance Physical Exam Narrative GENERAL: Awake, alert, pleasant 22-year-old male who appears his stated age and is in no acute respiratory distress. SKIN: Focused skin assessment warm/dry. HEAD: Atraumatic. Normocephalic. EYES: Pupils equal and round. Pupils are 4 mm bilateral and reactive. EOMs are intact. Patient is able to see fingers at a distance of 2 feet without difficulty. ENT: No nasal bleeding or discharge. Mucous membranes pink and moist. NECK: Trachea midline. No JVD. No meningeal signs. CARDIOVASCULAR: Regular rate and rhythm. No murmur appreciated. RESPIRATORY: No accessory muscle use. Clear to auscultation. Breath sounds equal bilaterally. GASTROINTESTINAL: Abdomen soft, non-tender, nondistended. MUSCULOSKELETAL: No obvious deformities. No clubbing. No cyanosis. No edema. NEUROLOGICAL: Awake and alert. No obvious cranial nerve deficits. Motor grossly within normal limits. Normal speech. Nonfocal. Oriented 4. Follows commands without difficulty. PSYCHIATRIC: Appropriate mood and affect; insight and judgment normal. Data Data Last Documented VS Vital Signs Date Time Temp Pulse Resp B/P (MAP) Pulse Ox O2 Delivery O2 Flow Rate FiO2 06/24/17 12:33 98.5 81 12 120/62 (81) 99 Orders Orders Ecg Monitoring (06/24/17 13:39) Iv Access Insert/Monitor (06/24/17 13:39) Oximetry (06/24/17 13:39) Sodium Chloride 0.9% Flush (Ns Flush) (06/24/17 13:45) Ketorolac Inj (Toradol Inj) (06/24/17 13:45) Prochlorperazine Inj (Compazine Inj) (06/24/17 13:45) Diphenhydramine Inj (Benadryl Inj) (06/24/17 13:45) Sodium Chlor 0.9% 1000 Ml Inj (Ns 1000 M (06/24/17 13:39) Morphine Inj (Morphine Inj) (06/24/17 13:45) MDM Medical Decision Making Medical Screen Exam Complete: Yes Emergency Medical Condition: Yes Medical Record Reviewed: Yes Differential Diagnosis Differential diagnosis includes migraine, tension headache, cluster headache, intracranial hemorrhage, intracranial tumor, glaucoma. Narrative Course The patient has a history of migraines with similar headaches in the past. There is no acute change in his headache pattern. Therefore, IV was established and the patient was placed on cardiac telemetry monitoring and continuous pulse oximetry monitoring. The patient was administer morphine, Zofran, Toradol, Compazine, and Benadryl. The patient was then monitored in the emergency department. He was also administered 1 L of IV fluids. The patient is reevaluated at 3:30 PM, still had a mild headache, therefore, was readministered another dose of morphine and IV fluids. He will be discharged home on Fioricet, is advised to follow-up with her primary physician and/or neurologist. Diagnosis Primary Impression: Cephalgia Qualified Codes: R51 - Headache Patient Instructions: General Instructions Additional Instructions: Medications as directed. Follow-up with your primary physician. Return if symptoms worsen or progress. Med/Other Pt SpecificInfo: Prescription(s) given Scripts Yicxkqpjhh-Pwdxrobbkxtra-Pimavxie (Fioricet) 50-300-40 Mg Cap 1 CAP PO Q4H Y for HEADACHE, #12 CAP 0 Refills Prov: Jeff Cruz MD 06/24/17 Disposition: DISCHARGE HOME Condition: Stable Jeff Cruz MD Jun 24, 2017 14:18
[2017-06-24] MEDS ORDERED: BUTA1CAP PO (15:41)
[2017-06-24 17:46] VITALS: O2SAT 98
== END 2017-06-24 17:51 | disposition home or self-care (01) ==
LOC: NEPD 12:32
DX: R51 Headache (principal); R11.0 Nausea
CPT/HCPCS: 96361; 96374; 96375; 96376; 99283; J0780; J1200; J1885; J2270; J7030

== ENCOUNTER 2017-10-10 22:48 | Emergency (ER) | payer BC ==
[~2017-10-10] VITALS: Ht 175.3 cm; Wt 60.0 kg
[~2017-10-10 22:48] MED LIST changes: +BUTA1CAP PO; -DICL75TA PO
[2017-10-10 23:16] VITALS: BP 133/64; PULSE 67; RESP 16; TEMP 98.7; O2SAT 99
[2017-10-11] MEDS ORDERED: SODIUM CHLOR 0.9% 1000 ML INJ 1,000 ML IV ONE (00:22)
--- NOTE | 2017-10-11 00:28 | PD ---
HPI Chief Complaint: Headache Time Seen by Provider: 00:06 Travel History International Travel<30 days: No Contact w/Intl Traveler<30days: No Traveled to known affect area: No History of Present Illness HPI The patient is a 22-year-old male who presents to the emergency department for headache. The patient states he developed a headache earlier today while at work. Headache started on the left side, came on gradually, and now is located both sides of the head, throbbing in nature, and associated with photophobia. The patient has a history of migraines since childhood, had a previous CAT scan which he states was negative. He was advised to follow-up with a neurologist, however, has not followed up with a neurologist. His last severe migraine was 3 months ago, he states he sought treatment in the emergency department. He denies any chest pain, shortness of breath, fever, posterior neck pain, nausea, vomiting, abdominal pain, or focal deficits. Symptoms are moderate and similar to previous migraines. PFSH Past Medical History Narrative Medical Migraines Diminished Hearing: No Genitourinary: Yes (STD) Migraines: Yes Influenza Vaccination: No Social History Alcohol Use: Yes (OCCASIONALLY) Tobacco Use: No Substance Use: Yes (MARIJUANA) Allergies-Medications (Allergen,Severity, Reaction): Coded Allergies: No Known Allergies (Verified Adverse Reaction, Unknown, 10/10/17) Reported Meds & Prescriptions Reported Meds & Active Scripts Active No Active Prescriptions or Reported Medications Review of Systems Except as stated in HPI: all other systems reviewed are Neg General / Constitutional: No: Fever Eyes: Positive: Photophobia HENT: Positive: Headaches, No: Neck Pain Cardiovascular: No: Chest Pain or Discomfort Respiratory: No: Shortness of Breath Gastrointestinal: No: Nausea, Vomiting, Abdominal Pain Neurologic: Positive: Headache, No: Change in Mentation, Paresthesia, Sensory Disturbance Physical Exam Narrative GENERAL: Awake, alert, pleasant 22-year-old male who appears his stated age and is in no acute respiratory distress. SKIN: Focused skin assessment warm/dry. HEAD: Atraumatic. Normocephalic. EYES: Pupils equal and round. 4 mm bilateral and reactive. EOMs are intact. Patient is able to see fingers at a distance of 2 feet without difficulty. ENT: No nasal bleeding or discharge. Mucous membranes pink and moist. NECK: Trachea midline. No JVD. No meningeal signs. CARDIOVASCULAR: Regular rate and rhythm. No murmur appreciated. RESPIRATORY: No accessory muscle use. Clear to auscultation. Breath sounds equal bilaterally. GASTROINTESTINAL: Abdomen soft, non-tender, nondistended. MUSCULOSKELETAL: No obvious deformities. No clubbing. No cyanosis. No edema. NEUROLOGICAL: Awake and alert. No obvious cranial nerve deficits. Motor grossly within normal limits. Normal speech. Nonfocal. Oriented 4. Follows commands without difficulty. PSYCHIATRIC: Appropriate mood and affect; insight and judgment normal. Data Data Last Documented VS Vital Signs Date Time Temp Pulse Resp B/P (MAP) Pulse Ox O2 Delivery O2 Flow Rate FiO2 10/11/17 00:39 16 97 Room Air 10/10/17 23:16 98.7 67 133/64 (87) Orders Orders Ecg Monitoring (10/11/17 00:22) Iv Access Insert/Monitor (10/11/17 00:22) Oximetry (10/11/17 00:22) Sodium Chloride 0.9% Flush (Ns Flush) (10/11/17 00:30) Acetaminophen (Tylenol) (10/11/17 00:30) Ketorolac Inj (Toradol Inj) (10/11/17 00:30) Prochlorperazine Inj (Compazine Inj) (10/11/17 00:30) Diphenhydramine Inj (Benadryl Inj) (10/11/17 00:30) Sodium Chlor 0.9% 1000 Ml Inj (Ns 1000 M (10/11/17 00:22) Morphine Inj (Morphine Inj) (10/11/17 00:30) Ed Discharge Order (10/11/17 02:21) [facility] Medical Decision Making Medical Screen Exam Complete: Yes Emergency Medical Condition: Yes Medical Record Reviewed: Yes Differential Diagnosis Differential diagnosis includes migraine, tension headache, intracranial tumor, intracranial hemorrhage, subarachnoid hemorrhage, aneurysm, glaucoma. Narrative Course IV was established and the patient was administered Toradol, Benadryl, Tylenol, Compazine, morphine, and IV fluids. The patient will be reassessed, with symptoms have improved she will be discharged home. He is advised to follow-up with his primary physician and/or neurology. Diagnosis Primary Impression: Headache Qualified Codes: R51 - Headache Patient Instructions: General Instructions Additional Instructions: Follow-up with a primary physician and/or neurologist. Work excuse for today and tomorrow. Return if symptoms worsen or progress. Med/Other Pt SpecificInfo: No Change to Meds Scripts No Active Prescriptions or Reported Meds Disposition: 01 DISCHARGE HOME Condition: Stable Jeff Cruz MD Oct 11, 2017 00:28
[2017-10-11] MEDS ORDERED: PROCHLORPERAZINE INJ 10 MG/2 ML VIAL IVP ONE (00:30)
[2017-10-11] MEDS ORDERED: SODIUM CHLORIDE 0.9% FLUSH 10 ML FLUSH IVF PRN (00:30)
[2017-10-11] MEDS ORDERED: MORPHINE SULFATE 4 MG/ML INJ IV PUSH ONE (00:30)
[2017-10-11] MEDS ORDERED: KETOROLAC TROMETHAMINE 30 MG/ML (IVP) VIAL IVP ONE (00:30)
[2017-10-11] MEDS ORDERED: diphenhydrAMINE HCL 50 MG/ML VIAL IVP ONE (00:30)
[2017-10-11] MEDS ORDERED: ACETAMINOPHEN 325 MG TAB PO ONE (00:30)
[2017-10-11 00:39] VITALS: RESP 16; O2SAT 97
--- NOTE | 2017-10-11 02:21 | PD ---
Physical Exam Date Seen by Provider: Oct 11, 2017 Time Seen by Provider: 02:20 Narrative For full H&P please see previous providers note. I assumed care of this patient change of shift. Data Data Last Documented VS Vital Signs Date Time Temp Pulse Resp B/P (MAP) Pulse Ox O2 Delivery O2 Flow Rate FiO2 10/11/17 00:39 16 97 Room Air 10/10/17 23:16 98.7 67 133/64 (87) Orders Orders Ecg Monitoring (10/11/17:22) Iv Access Insert/Monitor (10/11/17 00:22) Oximetry (10/11/17:22) Sodium Chloride 0.9% Flush (Ns Flush) (10/11/17 00:30) Acetaminophen (Tylenol) (10/11/17 00:30) Ketorolac Inj (Toradol Inj) (10/11/17 00:30) Prochlorperazine Inj (Compazine Inj) (10/11/17 00:30) Diphenhydramine Inj (Benadryl Inj) (10/11/17 00:30) Sodium Chlor 0.9% 1000 Ml Inj (Ns 1000 M (10/11/17 00:22) Morphine Inj (Morphine Inj) (10/11/17 00:30) MDM Medical Record Reviewed: Yes Supervised Visit with ZAHRA: Yes Narrative Course 0220 patient was reassessed, he was found to be sleeping comfortably. Girlfriend is at bedside. Patient was easily aroused and reported resolution of his headache. Patient will be discharged home at this time. For further instructions please see previous providers note. Diagnosis Primary Impression: Headache Qualified Codes: R51 - Headache Referrals: Neurologist Primary Care Physician Patient Instructions: General Instructions Departure Forms: Tests/Procedures, Work Release Enter return to work date: Oct 13, 2017 Additional Instruction: Follow-up with a primary physician and/or neurologist. Work excuse for today and tomorrow. Return if symptoms worsen or progress. Med/Other Pt SpecificInfo: No Change to Meds Scripts No Active Prescriptions or Reported Meds Disposition: 01 DISCHARGE HOME Condition: Stable Karen Portillo Margarita GAYLE Oct 11, 2017 02:21
== END 2017-10-11 02:36 | disposition home or self-care (01) ==
LOC: NEPD 22:48
DX: R51 Headache (principal); H53.143 Visual discomfort, bilateral; F12.90 Cannabis use, unspecified, uncomplicated
CPT/HCPCS: 96361; 96374; 96375; 99284; J0780; J1200; J1885; J2270; J7030

== ENCOUNTER 2017-10-18 07:10 | Emergency (ER) | payer BC ==
[~2017-10-18] VITALS: Ht 175.3 cm; Wt 63.0 kg
[2017-10-18 07:14] VITALS: BP 127/59; PULSE 72; RESP 16; TEMP 98.1; O2SAT 98
[2017-10-18] MEDS ORDERED: SODIUM CHLOR 0.9% 1000 ML INJ 1,000 ML IV ONE (07:24)
[2017-10-18] MEDS ORDERED: methylPREDNISolone SOD SUCC 125 MG/2 ML VIAL IV PUSH ONE (07:30)
[2017-10-18] MEDS ORDERED: KETOROLAC TROMETHAMINE 30 MG/ML (IVP) VIAL IVP ONE (07:30)
[2017-10-18] MEDS ORDERED: diphenhydrAMINE HCL 50 MG/ML VIAL IVP ONE (07:30)
[2017-10-18] MEDS ORDERED: PROCHLORPERAZINE INJ 10 MG/2 ML VIAL IVP ONE (07:30)
[2017-10-18] MEDS ORDERED: SODIUM CHLORIDE 0.9% FLUSH 10 ML FLUSH IVF PRN (07:30)
[2017-10-18] MEDS ORDERED: ACETAMINOPHEN 325 MG TAB PO ONE (07:30)
--- NOTE | 2017-10-18 07:32 | PD ---
HPI Chief Complaint: Headache Time Seen by Provider: 07:20 Travel History International Travel<30 days: No Contact w/Intl Traveler<30days: No Traveled to known affect area: No History of Present Illness HPI The patient is a 22-year-old male who presents to the emergency department for headache. The patient has a history of headaches, states he was told he had a blood transfusion as a child which resulted in headaches. He thinks he may have had prior imaging as a child has had no recent imaging. He does note increase in the frequency of his headaches the last several months with several previous emergency department visits for headache. The patient awakened at approximately 3 to 3:30 AM to use the restroom and noticed he had a frontal headache. The headache is located in the left frontal aspect of his head, throbbing, and associated with phonophobia and photophobia. He denies any neck pain, nausea, vomiting, or thunderclap quality to the headache. He denies any focal deficits of the upper or lower extremities. The patient states he has not had time to follow-up with a neurologist on an outpatient basis. He takes no medications to prevent migraine headaches. Symptoms are moderate. He denies any associated fever. PFSH Past Medical History Anemia: Yes Diminished Hearing: No Genitourinary: Yes (STD) Migraines: Yes Influenza Vaccination: No Past Surgical History Surgical History: No Previous Surgery Social History Alcohol Use: Yes (OCCASIONALLY) Tobacco Use: No Substance Use: Yes (MARIJUANA) Allergies-Medications (Allergen,Severity, Reaction): Coded Allergies: No Known Allergies (Verified Adverse Reaction, Unknown, 10/18/17) Reported Meds & Prescriptions Reported Meds & Active Scripts Active No Active Prescriptions or Reported Medications Review of Systems Except as stated in HPI: all other systems reviewed are Neg General / Constitutional: No: Fever Eyes: Positive: Photophobia, No: Blurred Vision HENT: Positive: Headaches, No: Neck Pain Gastrointestinal: No: Nausea, Vomiting Musculoskeletal: No: Weakness Neurologic: Positive: Headache, No: Dizziness, Change in Mentation, Paresthesia , Sensory Disturbance Physical Exam Narrative GENERAL: Awake, alert, pleasant 22-year-old male who appears his stated age and is in no acute respiratory distress. SKIN: Focused skin assessment warm/dry. HEAD: Atraumatic. Normocephalic. EYES: Pupils equal and round. Pupils are 4 mm bilateral and reactive. EOMs are intact. ENT: No nasal bleeding or discharge. Mucous membranes pink and moist. NECK: Trachea midline. No JVD. No meningeal signs. CARDIOVASCULAR: Regular rate and rhythm. No murmur appreciated. RESPIRATORY: No accessory muscle use. Clear to auscultation. Breath sounds equal bilaterally. GASTROINTESTINAL: Abdomen soft, non-tender, nondistended. MUSCULOSKELETAL: No obvious deformities. No clubbing. No cyanosis. No edema. NEUROLOGICAL: Awake and alert. No obvious cranial nerve deficits. Motor grossly within normal limits. Normal speech. Nonfocal. Oriented 4. Follows commands without difficulty. PSYCHIATRIC: Appropriate mood and affect; insight and judgment normal. Data Data Last Documented VS Vital Signs Date Time Temp Pulse Resp B/P (MAP) Pulse Ox O2 Delivery O2 Flow Rate FiO2 10/18/17 07:27 Room Air 10/18/17 07:14 98.1 72 16 127/59 (81) [address] Brain W/O Iv Contrast(Rout) (10/18/17 07:24) Ecg Monitoring (10/18/17 07:24) Iv Access Insert/Monitor (10/18/17 07:24) Oximetry (10/18/17 07:24) Sodium Chloride 0.9% Flush (Ns Flush) (10/18/17 07:30) Acetaminophen (Tylenol) (10/18/17 07:30) Ketorolac Inj (Toradol Inj) (10/18/17 07:30) Prochlorperazine Inj (Compazine Inj) (10/18/17 07:30) Diphenhydramine Inj (Benadryl Inj) (10/18/17 07:30) Sodium Chlor 0.9% 1000 Ml Inj (Ns 1000 M (10/18/17 07:24) Methylprednisolone So Succ Inj (Solumedr (10/18/17 07:30) MDM Medical Decision Making Medical Screen Exam Complete: Yes Emergency Medical Condition: Yes Medical Record Reviewed: Yes Interpretation(s) CT of the brain reveals normal examination. Last Impressions Head CT 10/18/17723 Signed Impressions: Service Date/Time: Wednesday, October 18, 2017 08:17 - CONCLUSION: Normal examination. William Goldstein MD Differential Diagnosis Differential diagnosis includes cephalgia, tension headache, migraine, pseudotumor cerebri, intracranial mass, glaucoma, sinusitis. Narrative Course IV was established and the patient was placed on cardiac telemetry monitoring and continuous pulse oximetry monitoring. The patient was administered Tylenol , Benadryl, Toradol, Compazine, and Solu-Medrol with IV fluids. Noncontrast CT of the brain was ordered to rule out intracranial mass with increasing headaches. CT of the brain reveals normal examination. The patient was reevaluated at 9:19 AM. The patient's headache has improved. I did advise the patient he should follow-up with neurology as he may have migraines which are progressing and may benefit from prophylactic treatment. The patient was provided a copy of his CT results at discharge. The patient does have a ride home. Diagnosis Primary Impression: Headache Qualified Codes: R51 - Headache Patient Instructions: General Instructions Additional Instructions: Please provide the patient a copy of his CT results at discharge. Follow-up with neurology on an outpatient basis. Return if symptoms worsen or progress. Med/Other Pt SpecificInfo: No Change to Meds Scripts No Active Prescriptions or Reported Meds Disposition: 01 DISCHARGE HOME Condition: Stable Jeff Cruz MD Oct 18, 2017 07:32
--- NOTE | 2017-10-18 08:29 | RADRPT ---
EXAM DATE/TIME: 10/18/2017 08:17 [facility] COMPARISON: No previous studies available for comparison. INDICATIONS : Recurrent headaches RADIATION DOSE: 38.72 CTDIvol (mGy) MEDICAL HISTORY : Anemia SURGICAL HISTORY : None. ENCOUNTER: Initial ACUITY: 1 day PAIN SCALE: 8/10 LOCATION: cranial TECHNIQUE: Multiple contiguous axial images were obtained of the head. Using automated exposure control and adj ustment of the mA and/or kV according to patient size, radiation dose was kept as low as reasonably a chievable to obtain optimal diagnostic quality images. DICOM format image data is available electro nically for review and comparison. FINDINGS: CEREBRUM: The ventricles are normal for age. No evidence of midline shift, mass lesion, hemorrhage or acute in farction. No extra-axial fluid collections are seen. POSTERIOR FOSSA: The cerebellum and brainstem are intact. The 4th ventricle is midline. The cerebellopontine angle i s unremarkable. EXTRACRANIAL: The visualized portion of the orbits is intact. SKULL: The calvaria is intact. No evidence of skull fracture. CONCLUSION: Normal examination. William Goldstein MD on October 18, 2017 at 8:24 Board Certified Radiologist. This report was verified electronically.
== END 2017-10-18 09:43 | disposition home or self-care (01) ==
LOC: NEPE 07:10
DX: F12.90 Cannabis use, unspecified, uncomplicated (principal); R51 Headache
CPT/HCPCS: 70450; 96361; 96374; 96375; 99284; J0780; J1200; J1885; J2930; J7030